=== PATIENT | female | born 1930 | race Caucasian/White ===

== ENCOUNTER → 2018-11-25 | Emergency (ER) | payer OTHER ==
[~2018-11-25] VITALS: Ht 152.4 cm; Wt 65.3 kg
[~2018-11-25] MED LIST: ALDACTONE25 MG; ALDACTONE25 MG PO; ASA81 MG PO; ATENOLOL100 MG PO; ATORVASTATIN CA80 MG; AVAPRO150 MG PO; CATAFLAM50 MG PO; COREG CR10 MG PO; COZAAR50 MG; LASIX20 MG PO; LASIX40 MG; LIPITOR40 MG; LIPO-FLAVONOID1 EACH PO; MICARDIS80 MG PO; NORVASC5 MG; PEPCID40 MG PO; PNEU16DI2; PREVACID15 MG PO; PROTONIX40 MG PO; SIMVASTATIN40 MG PO; SINGULAIR10 MG PO; VASOFLEX TABLET1 TAB PO; VASOTEC5 MG; ZETIA10 MG
== END | disposition home or self-care (01) ==
LOC: ER 14:51 → CPU-OBS 15:16 → ER 15:16
DX: I13.0 Hypertensive heart and chronic kidney disease with heart failure and stage 1 through stage 4 chronic kidney disease, or unspecified chronic kidney disease (principal); N18.2 Chronic kidney disease, stage 2 (mild); I50.9 Heart failure, unspecified; E78.49 Other hyperlipidemia; R42 Dizziness and giddiness; R74.8 Abnormal levels of other serum enzymes